=== PATIENT | female | born 1945 | race Caucasian/White ===

== ENCOUNTER 2017-08-09 05:55 | Inpatient (IN) | payer MEDICARE, OTHER ==
[2017-08-04 16:16] LABS: BASOPHILS # (AUTO) 0.1 X10'3 (0-0.2); BASOPHILS % (AUTO) 0.6 % (0-1); EOSINOPHILS # (AUTO) 0.2 X10'3 (0-0.9); EOSINOPHILS % (AUTO) 2.4 % (0-6); LYMPHOCYTES % (AUTO) 21.4 % (21-51); MEAN CORPUSCULAR HEMOGLOBIN 30.8 PG (27.0-31.0); MEAN CORPUSCULAR HGB CONC 35.1 % (33.0-36.5); MEAN CORPUSCULAR VOLUME 87.8 FL (78-98); MEAN PLATELET VOLUME 8.2 FL (7.4-10.4); MONOCYTES # (AUTO) 0.7 X10'3 (0-0.9); NEUTROPHILS # (AUTO) 6.4 X10'3 (1.8-7.7); NEUTROPHILS % (AUTO) 68.6 % (42-75); PRE OP HEMATOCRIT 41.6 % (35.0-45.0); PRE OP HEMOGLOBIN 14.6 g/dL (12.0-16.0); PRE OP PLATELET COUNT 266 X10'3 (140-440); RED BLOOD COUNT 4.74 X10'6 (4.20-5.60); RED CELL DISTRIBUTION WIDTH 13.1 % (11.5-14.5)
[2017-08-04 16:33] LABS: ALBUMIN 3.8 G/DL (3.4-5.0); ALKALINE PHOSPHATASE 100 IU/L (46-116); BLOOD UREA NITROGEN 21 MG/DL (7-18); BUN/CREATININE RATIO 16.5 (6.6-38.0); CALCIUM 9.2 MG/DL (8.5-10.1); CHLORIDE 103 MMOL/L (99-107); CREATININE 1.27 MG/DL (0.40-0.90); PRE OP ALT 28 U/L (30-65); PRE OP ANION GAP 13 (8-16); PRE OP AST 15 U/L (10-37); PRE OP BILIRUB, TOTAL 0.7 MG/DL (0.0-1.0); PRE OP GLUCOSE 98 MG/DL (70-104); PRE OP POTASSIUM 3.6 MMOL/L (3.4-5.1); PRE OP SODIUM 139 MMOL/L (135-145); TOTAL CARBON DIOXIDE 23.4 MMOL/L (24-32); TOTAL PROTEIN 7.8 G/DL (6.4-8.2); eGFR 41 ML/MIN
[~2017-08-09] VITALS: Ht 157.5 cm; Wt 72.1 kg
[2017-08-09] VITALS (19 sets, daily range): BP systolic 129–160; BP diastolic 47–79
[~2017-08-09 05:55] MED LIST: ESTR42.53 VG; LEVO100T9 PO; ringers solution, lacted 1,000 ML IV SCH
[2017-08-09] MEDS ORDERED: ceFAZolin 1000mg inj ONE (06:46)
[2017-08-09] MEDS ORDERED: clindamycin phosphate 40gm vag cream ONE (06:46)
[2017-08-09] MEDS ORDERED: vasoPRESSIN 20 units/ml inj. ONE (06:46)
[2017-08-09] MEDS ORDERED: LIDOcaine 1% (10mg/ml) 2ml vial ONE (07:37)
[2017-08-09] MEDS ORDERED: GENTAMICIN IV ONE (08:00)
[2017-08-09] MEDS ORDERED: WATER IV ONE (08:00)
[2017-08-09] MEDS ORDERED: famotidine 20mg tablet PO ONE (08:00)
[2017-08-09] MEDS ORDERED: cefoxitin sod inj 2,000 MG in dextrose 5%-water 50ml 50 ML IV ONE (08:00)
[2017-08-09] MEDS ORDERED: clindamycin-Cleocin 900mg/D5W 50 ML IV ONE (08:00)
[2017-08-09] MEDS ORDERED: DEXTROSE 5% IV ONE (08:00)
[2017-08-09] MEDS ORDERED: sevoflurane 250ml liquid IH ONE (08:08)
[2017-08-09] MEDS ORDERED: midazolam 2 mg/2 ml injection ONE (08:13)
[2017-08-09] MEDS ORDERED: fentaNYL/PF 50MCG/1 ML 2ML syringe ONE (08:13)
[2017-08-09] MEDS ORDERED: propofol inj 20 ML IV ONE (08:15)
[2017-08-09] MEDS ORDERED: LIDOcaine 2% (20mg/ml) 5ml vial ONE (08:15)
[2017-08-09] MEDS ORDERED: ondansetron/PF 4mg/2ml inj ONE (08:16)
[2017-08-09] MEDS ORDERED: ketorolac trometh. 30mg/ml inj. ONE (08:17)
[2017-08-09] MEDS ORDERED: dexamethasone sod phosphate 4mg/ml inj. ONE (08:27)
[2017-08-09] MEDS ORDERED: ringers solution, lacted 1,000 ML IV SCH ×3 (09:07→09:08)
[2017-08-09] MEDS ORDERED: morphine 4 MG/ML inj SYRINge IV PRN ×6 (09:10)
[2017-08-09] MEDS ORDERED: proCHLORperazine 10 MG/2 ml inj IV PRN ×3 (09:10)
[2017-08-09] MEDS ORDERED: ondansetron/PF 4mg/2ml inj IV PRN ×4 (09:10→09:30)
[2017-08-09] MEDS ORDERED: meperidine/PF 50mg/ml syringe IV PRN ×9 (09:10)
[2017-08-09] MEDS: ringers solution, lacted 1,000 ML IV SCH ×3 (09:27→21:38)
[2017-08-09] MEDS ORDERED: ketorolac tromethamine 15mg/ml inj. IV PRN (09:30)
[2017-08-09] MEDS ORDERED: temazepam 15mg capsule PO PRN (09:30)
[2017-08-09] MEDS ORDERED: normal saline 500ml IV soln 500 ML IV PRN (09:30)
[2017-08-09] MEDS ORDERED: magnesium hydroxide 30ml (MOM) UD suspension PO PRN (09:30)
[2017-08-09] MEDS ORDERED: naloxone 0.4 mg/ml inj IV PRN (09:30)
[2017-08-09] MEDS ORDERED: HYDROcodone/acetaminophen 5mg/325mg tablet PO PRN ×2 (09:30)
[2017-08-09] MEDS ORDERED: diphenhydrAMINE 50 mg/ml inj IV PRN (09:30)
[2017-08-09] MEDS ORDERED: CADD PCA waste documentation MC PRN (09:30)
[2017-08-09] MEDS: HYDROmorphone/NS 1 mg/ml CADD 50 ML IV SCH ×8 (10:22→23:00)
[2017-08-09] MEDS: simethicone 80mg chew tab PO SCH ×2 (12:53→17:07)
[2017-08-09] MEDS: docusate sod 100mg capsule PO SCH (20:00)
[2017-08-10 00:08] VITALS: BP 119/39
[2017-08-10] MEDS: HYDROmorphone/NS 1 mg/ml CADD 50 ML IV SCH ×4 (01:00→07:00)
[2017-08-10] MEDS: ringers solution, lacted 1,000 ML IV SCH ×2 (04:59→17:10)
[2017-08-10 05:12] LABS: BASOPHILS % (AUTO) 0.3 % (0-1); EOSINOPHILS # (AUTO) 0.1 X10'3 (0-0.9); EOSINOPHILS % (AUTO) 1.7 % (0-6); HEMATOCRIT 32.6 % (35.0-45.0); HEMOGLOBIN 11.1 g/dl (12.0-16.0); LYMPHOCYTES # (AUTO) 1.1 X10'3 (1.1-4.8); LYMPHOCYTES % (AUTO) 13.8 % (21-51); MEAN CORPUSCULAR HEMOGLOBIN 30.1 PG (27.0-31.0); MEAN CORPUSCULAR HGB CONC 34.1 % (33.0-36.5); MEAN CORPUSCULAR VOLUME 88.1 FL (78-98); MEAN PLATELET VOLUME 8.6 FL (7.4-10.4); MONOCYTES # (AUTO) 0.6 X10'3 (0-0.9); MONOCYTES % (AUTO) 7.3 % (2-12); NEUTROPHILS # (AUTO) 6.1 X10'3 (1.8-7.7); NEUTROPHILS % (AUTO) 76.9 % (42-75); PLATELET COUNT 170 X10'3 (140-440); RED CELL DISTRIBUTION WIDTH 13.1 % (11.5-14.5); WHITE BLOOD COUNT 7.9 X10'3 (4.5-11.0)
[2017-08-10] MEDS: simethicone 80mg chew tab PO SCH ×3 (07:42→18:00)
[2017-08-10] MEDS: docusate sod 100mg capsule PO SCH (07:42)
[2017-08-10 07:51] VITALS: BP 144/48
[2017-08-10] MEDS ORDERED: levoTHYROXINE 100mcg tablet PO SCH (08:00)
[2017-08-10 11:16] VITALS: BP 162/52
[2017-08-10 19:06] VITALS: BP 148/54
== END 2017-08-10 19:26 | disposition home or self-care (01) | DRG 748 ==
LOC: PAS 05:55 → SUR 3N 09:27
PROVIDERS: ADMIT Specialist; ATTEND Specialist
PROC: 0JQC0ZZ Repair Pelvic Region Subcutaneous Tissue and Fascia, Open Approach (ICD-10-PCS; 2017-08-09)
PROC: 0TJB8ZZ Inspection of Bladder, Via Natural or Artificial Opening Endoscopic (ICD-10-PCS; 2017-08-09)
PROC: 0TSD0ZZ Reposition Urethra, Open Approach (ICD-10-PCS; principal; 2017-08-09 08:10)
DX: N81.11 Cystocele, midline (principal); N36.42 Intrinsic sphincter deficiency (ISD); N39.3 Stress incontinence (female) (male); N95.2 Postmenopausal atrophic vaginitis; Z90.722 Acquired absence of ovaries, bilateral; Z90.710 Acquired absence of both cervix and uterus; Z79.899 Other long term (current) drug therapy; Z83.79 Family history of other diseases of the digestive system
CPT/HCPCS: 36415; 80053; 85025; 85610; 85730; 86885; 86900; 86901; A4315; A4355; A6250; A7000; C1771; J0690; J0694; J1100; J1170; J1200; J1580; J1885; J2001; J2250; J2405; J2704; J3010; J3490; J7030; J7060; J7120